=== PATIENT | female | born 1940 | race Caucasian/White ===

== ENCOUNTER 2020-01-10 17:01 | Emergency (ER) | payer MEDICARE ==
[~2020-01-10] VITALS: Ht 170.2 cm; Wt 72.6 kg
[2020-01-10] MEDS ORDERED: MONTELUKAST SOD10 MG PO (17:30)
[2020-01-10] MEDS ORDERED: ELIQUIS5 MG PO (17:30)
[2020-01-10] MEDS ORDERED: TRIAMTERENE-HC1 EAC2 PO (17:31)
[2020-01-10] MEDS ORDERED: ESTRACE1 MG PO (17:31)
[2020-01-10] MEDS ORDERED: METOPROLOL TART25 MG PO (20:50)
--- NOTE | 2020-01-11 16:55 | EKG ---
[facility] [address] [place], [place] [address] Signed Normal sinus rhythm Right atrial enlargement Right bundle branch block Abnormal ECG No previous ECGs available Confirmed by SINAI BAKER DO ([id number]) on 01/11/2020 4:55:33 PM Electronically Signed By: SINAI BAKER DO 01/11/20 1655 PATIENT NAME: YESSY SOTELO Electrocardiogram DATE OF : 36 PHYSICIAN: SINAI BAKER DO REPORT #: [id number] REPORT IS CONFIDENTIAL AND NOT TO BE RELEASED WITHOUT AUTHORIZATION
== END 2020-01-10 21:05 | disposition home or self-care (01) ==
LOC: ED 17:01
DX: I48.91 Unspecified atrial fibrillation (principal); Z79.899 Other long term (current) drug therapy
CPT/HCPCS: 71045; 80053; 83735; 84484; 85025; 93005; 93010; 99285-25